=== PATIENT | male | born 1990 | race African-American/Black ===

== ENCOUNTER 2021-10-30 04:05 | Emergency (ER) | payer SELFPAY ==
[2021-10-30 04:13] VITALS: BP 124/82; PULSE 102; RESP 20; TEMP 98
--- NOTE | 2021-10-30 05:13 | ED ---
Recheck HPI - General Chief Complaint: Recheck/Abnormal Lab/Rx Stated Complaint: Covid test-shivani Time Seen by Provider: 10/30/21 05:09 Source: patient Mode of arrival: ambulatory Limitations: no limitations - History of Present Illness Initial Comments: Patient is a 31-year-old man who presents to have covid 19 test to go to [place]. - Related Data Allergies Allergy/AdvReac Type Severity Reaction Status Date / Time No Known Allergies Allergy Verified 10/30/21 04:13 Review of Systems ROS Statement: Those systems with pertinent positive or pertinent negative responses have been documented in the HPI. ROS Other: All systems not noted in ROS Statement are negative. Past Medical History Past Medical History: No Reported History History of Any Multi-Drug Resistant Organisms: None Reported Past Surgical History: No Surgical Hx Reported Past Psychological History: No Psychological Hx Reported Smoking Status: Never smoker Past Alcohol Use History: None Reported Past Drug Use History: None Reported General Exam Limitations: no limitations Course Vital Signs 10/30/21 04:10 Temperature 98 F Pulse Rate 102 H Respiratory 20 Rate Blood Pressure 124/82 O2 Sat by Pulse 100 Oximetry Medical Decision Making - Medical Decision Making Patient declines medical screening exam - Lab Data Lab Results 10/30/21 Range/Units 04:21 Coronavirus (PCR) Not Detected (Not Detectd) Disposition Clinical Impression: Encounter for immunological test Disposition: HOME SELF-CARE Condition: Good Is patient prescribed a controlled substance at d/c from ED?: No Referrals: None,Stated [Primary Care Provider] - 1-2 days
== END 2021-10-30 05:31 | disposition home or self-care (01) ==
LOC: EC 04:05
DX: Z11.59 Encounter for screening for other viral diseases (principal); Z20.822 Contact with and (suspected) exposure to COVID-19
CPT/HCPCS: 87635; 99282